=== PATIENT | female | born 1950 ===

== ENCOUNTER 2017-02-21 11:41 | Day surgery (SDC) | payer MEDICARE, MEDICAID ==
[2017-02-21] MEDS ORDERED: Lactated Ringer's 500 ML IV ONE (12:29)
[2017-02-21 12:46] VITALS: TEMP 97
[2017-02-21] MEDS ORDERED: Propofol 10 mg/ml Inj (20 ML) ONE (13:09)
[2017-02-21 13:45] VITALS: BP 98/64; PULSE 72; RESP 19; O2SAT 98
== END 2017-02-21 14:02 | disposition home or self-care (01) ==
LOC: H.ENDO 11:41
PROVIDERS: ATTEND Internal Medicine Gastroenterology
DX: Z12.11 Encounter for screening for malignant neoplasm of colon (principal); I10 Essential (primary) hypertension; D12.0 Benign neoplasm of cecum; K57.30 Diverticulosis of large intestine without perforation or abscess without bleeding
CPT/HCPCS: 45380; 88305; J2001; J2704; J7120